=== PATIENT | male | born 1985 | race Caucasian/White ===

== ENCOUNTER 2017-11-03 18:11 | Emergency (ER) | payer BC, OTHER ==
[2017-11-03] MEDS ORDERED: NS 0.9% 1000 ML* 1,000 ML BOLUS ONE (18:55)
[2017-11-03] MEDS ORDERED: Ondansetron INJ* 2 MG/ML VIAL IV ONE (18:56)
[2017-11-03] MEDS ORDERED: Famotidine IV * 20 MG in NS 0.9% 100 ML* 100 ML IVPB ONE (18:56)
--- NOTE | 2017-11-03 19:02 | UC ---
Abdominal Pain Male HPI - HPI Summary HPI Summary: The patient is a 32-year-old male who presents here for the evaluation of dyspepsia and diarrhea. He states that for at least 2 weeks whenever he tries to swallow food of metcalf from his sternal notch down to his epigastrium. He has been experiencing some nausea. Been experiencing some epigastric discomfort. His had no vomiting. The past 3 days she has been unable to eat anything due to his symptoms. Weeks he has had diarrhea 3-5 times a day. Occasionally he sees a small amount of blood in his stool. He denies any weight loss. Today at work he felt like he was going to pass out. - History of Current Complaint Chief Complaint: UCGI Stated Complaint: UPSET STOMACH, DIZZINESS Time Seen by Provider: 11/03/17 18:29 Hx Obtained From: Patient Onset/Duration: Gradual Onset, Lasting Weeks Timing: Constant Severity Initially: Mild Severity Currently: Moderate Pain Intensity: 6 Pain Scale Used: 0-10 Numeric Location: Epigastric Radiates: No Character: Aching, Burning Aggravating Factor(s): Food Alleviating Factor(s): Nothing Associated Signs And Symptoms: Positive: Dizzy, Blood in Stool, Decreased Appetite, Nausea, Diarrhea. Negative: Vomiting, Penile Discharge - Allergies/Home Medications Allergies/Adverse Reactions: Allergies Allergy/AdvReac Type Severity Reaction Status Date / Time amphetamine [From Adderall] Allergy Rash Verified 11/03/17 18:31 dextroamphetamine Allergy Rash Verified 11/03/17 18:31 [From Adderall] chlorine Allergy Swelling Uncoded 11/03/17 18:35 Of Face,Lips,& Throat Home Medications: Home Medications Acetaminophen TAB* [Tylenol TAB*] 650 mg PO Q4H PRN 11/03/17 [History Confirmed 11/03/17] Sertraline* [Zoloft*] 25 mg PO DAILY 11/03/17 [History Confirmed 11/03/17] PMH/Surg Hx/FS Hx/Imm Hx Previously Healthy: Yes - Surgical History Surgical History: Yes Surgery Procedure, Year, and Place: SX FOR TESTICULAR TORSION - Family History Known Family History: Positive: Unknown - doesn't know the hx of his biologic parents. ?dad at young age - Social History Alcohol Use: Rare Substance Use Type: None Smoking Status (MU): Never Smoked Tobacco Review of Systems Constitutional: Fatigue Skin: Negative Eyes: Negative ENT: Negative Respiratory: Negative Cardiovascular: Negative Gastrointestinal: Abdominal Pain, Diarrhea, Nausea Genitourinary: Negative Motor: Negative Neurovascular: Negative Musculoskeletal: Negative Neurological: Negative Psychological: Negative Is Patient Immunocompromised?: No All Other Systems Reviewed And Are Negative: Yes Physical Exam Triage Information Reviewed: Yes Appearance: Ill-Appearing Vital Signs: Initial Vital Signs Temp 99.7 F 11/03/17 18:38 Pulse 107 11/03/17 18:38 Resp 16 11/03/17 18:38 BP 132/84 11/03/17 18:38 Pulse Ox 98 11/03/17 18:38 Vital Signs Reviewed: Yes Eyes: Positive: Conjunctiva Clear ENT: Positive: Hearing grossly normal. Negative: Nasal congestion, Nasal drainage, Trismus, Muffled voice, Hoarse voice, Uvula midline Neck: Positive: Supple, Nontender Respiratory: Positive: Lungs clear, Normal breath sounds, No respiratory distress, No accessory muscle use Cardiovascular: Positive: RRR, No Murmur, Tachycardia Abdomen Description: Positive: No Organomegaly, Soft, Other: - tender epigastrium and LLQ. Negative: Nontender, CVA Tenderness (R), CVA Tenderness (L ) Bowel Sounds: Positive: Present Musculoskeletal: Positive: ROM Intact, No Edema Neurological: Positive: Alert Psychological Exam: Normal Skin Exam: Normal Re-Evaluation - Re-Evaluation First Eval Re-Evaluation Time: 20:08 Change: Improved - abd pain gone Abd Pain Male Course/Dx - Course Course Of Treatment: The patient was much improved with IV hydration. He was no longer tachycardic after receiving a liter of fluids. He had no orthostatic hypotension. He was advised to follow-up with his provider first available appointment. - Differential Dx/Clinical Impression Provider Diagnoses: diarrhea. ? GERD. dehydration Discharge - Sign-Out/Discharge Documenting (check all that apply): Patient Departure - Discharge Plan Condition: Stable Disposition: HOME Patient Education Materials: Acute Diarrhea (ED), Dehydration (ED), Gastroesophageal Reflux Disease (ED) Forms: *Work Release Referrals: Yanira Bowen MD [Primary Care Provider] - As Soon As Possible Additional Instructions: blood work pending I suggest you get some mylanta and take 2 tablespoons about 1/2 hour before meals and at bedtime See your MD first available appt Bring is stool for studies TO ER FOR WORSENING SYMPTOMS - Billing Disposition and Condition Condition: STABLE Disposition: Home
[2017-11-03] MEDS ORDERED: Famotidine IV* 10 MG/ML 2 ML (20 mg) ONE (19:25)
[2017-11-03 20:20] VITALS: BP 143/89
[2017-11-04 11:02] LABS: ABS Basophils 0 10^3/ul (0-0.2); ABS Eosinophils 0.1 10^3/ul (0-0.6); ABS Lymphocytes 0.7 10^3/ul (1.0-4.8); ABS Monocytes 0.6 10^3/ul (0-0.8); ABS Neutrophils 9.1 10^3/ul (1.5-7.7); ABS Nucleated RBC 0 10^3/ul; Eosinophil % 0.8 % (0-6); Hematocrit 44 % (42-52); Lymphocyte % 6.7 % (25-47); Mean Corpuscular HGB Conc 34 g/dl (31-36); Mean Corpuscular Hemoglobin 28 pg (27-31); Mean Corpuscular Volume 83 fL (80-94); Nucleated Red Blood Cells % 0.2; Platelet Count 205 10^3/ul (150-450); Red Blood Count 5.34 10^6/ul (4.00-5.40); Red Cell Distribution Width 13 % (10.5-15); White Blood Count 10.6 10^3/ul (3.5-10.8)
[2017-11-04 11:36] LABS: EGFR Non-African American 90.9 (>60)
== END 2017-11-03 20:47 | disposition home or self-care (01) ==
LOC: UCCORT 18:11
DX: E86.0 Dehydration (principal); R19.7 Diarrhea, unspecified; R00.0 Tachycardia, unspecified; R10.13 Epigastric pain; Z88.8 Allergy status to other drugs, medicaments and biological substances
CPT/HCPCS: 36415; 80048; 81003; 85025; 96360; 96365; 96374; 99212; G0463; J2405

== ENCOUNTER 2018-10-14 04:50 | Emergency (ER) | payer BC, OTHER ==
[2018-10-14 05:32] LABS: Urine Appearance Clear; Urine Bilirubin Negative (Negative); Urine Blood Negative (Negative); Urine Color Yellow; Urine Glucose Negative (Negative); Urine Ketones Negative (Negative); Urine Nitrite Negative (Negative); Urine Protein Negative (Negative); Urine Specific Gravity 1.019 (1.010-1.030); Urine Urobilinogen Negative (Negative)
[2018-10-14] MEDS ORDERED: Lorazepam PYXIS KEY PRN (05:48)
[2018-10-14] MEDS ORDERED: LORazepam INJ* 2 MG/ML 1 ML VIAL IM ONE (05:48)
[2018-10-14] MEDS ORDERED: Lorazepam PYXIS KEY ONE (05:52)
[2018-10-14] MEDS ORDERED: LORazepam INJ* 2 MG/ML 1 ML VIAL ONE (05:52)
[2018-10-14 07:49] VITALS: BP 144/89
--- NOTE | 2018-10-14 12:41 | ED ---
Shortness of Breath - HPI Summary HPI Summary: Patient is a 33-year-old male presenting to the ED with shortness of breath, tingling in his fingertips and mid upper abdominal pain. He states he "had to take a knee" at work due to his severe anxiety symptoms and developed the following symptoms. He does have a history of anxiety, is prescribed sertraline , however has not taken this medication. Patient does state he has diffuse abdominal pain on arrival, however he endorses it as a "tensed up" feeling from him being so shaky due to his anxiety. He states he has been under a lot of stress recently. He does not have any medication for breakthrough anxiety. He did not take any medication prior to arrival. He denies any nausea or vomiting. He states this tingling in his fingertips now resolved and only endorses anxiety symptoms. He is concerned over his abdominal pain. Denies any diarrhea or constipation recently. Last bowel movement yesterday. - History of Current Complaint Chief Complaint: EDAbdPain Time Seen by Provider: 10/14/18 05:36 Hx Obtained From: Patient Onset/Duration: Sudden Onset Timing: Constant Current Severity: Moderate Associated Signs & Symptoms: Negative - Allergy/Home Medications Allergies/Adverse Reactions: Allergies Allergy/AdvReac Type Severity Reaction Status Date / Time amphetamine [From Adderall] Allergy Rash Verified 10/14/18 05:02 dextroamphetamine Allergy Rash Verified 10/14/18 05:02 [From Adderall] chlorine Allergy Swelling Uncoded 10/14/18 05:02 Of Face,Lips,& Throat PMH/Surg Hx/FS Hx/Imm Hx Previously Healthy: Yes Respiratory History: Reports: Hx Asthma - IN POOLS-BELIEVED TO BE R/T [facility]INE - Surgical History Surgery Procedure, Year, and Place: SX FOR TESTICULAR TORSION - Immunization History Hx Pertussis Vaccination: No Immunizations Up to Date: Yes Infectious Disease History: No Infectious Disease History: Denies: Traveled Outside the [place] in Last 30 Days - Family History Known Family History: Positive: Unknown - doesn't know the hx of his biologic parents. ?dad at young age - Social History Occupation: Unemployed Lives: With Family Alcohol Use: None Hx Substance Use: No Substance Use Type: Reports: None Hx Tobacco Use: No Smoking Status (MU): Never Smoked Tobacco Review of Systems Constitutional: Negative Negative: Palpitations, Chest Pain Negative: Shortness Of Breath, Cough Genitourinary: Negative Positive: no symptoms reported, see HPI Negative: Arthralgia, Myalgia Skin: Negative Positive: Anxious All Other Systems Reviewed And Are Negative: Yes Physical Exam Triage Information Reviewed: Yes Vital Signs On Initial Exam: Initial Vitals Temp Pulse Resp BP Pulse Ox 98.7 F 110 22 149/94 100 10/14/18 04:55 10/14/18 04:55 10/14/18 04:55 10/14/18 04:55 10/14/18 04:55 Vital Signs Reviewed: Yes Appearance: Positive: Well-Appearing, Well-Nourished Skin: Positive: Warm, Skin Color Reflects Adequate Perfusion Head/Face: Positive: Normal Head/Face Inspection Eyes: Positive: EOMI, Conjunctiva Clear Neck: Positive: Supple, No Lymphadenopathy Respiratory/Lung Sounds: Positive: Clear to Auscultation, Breath Sounds Present Cardiovascular: Positive: RRR, Pulses are Symmetrical in both Upper and Lower Extremities Abdomen Description: Positive: Nontender, No Organomegaly, Soft. Negative: CVA Tenderness (R), CVA Tenderness (L), Distended, Guarding Bowel Sounds: Positive: Present Musculoskeletal: Positive: Normal, Strength/ROM Intact Neurological: Positive: Sensory/Motor Intact, Alert, Oriented to Person Place, Time, Speech Normal Psychiatric: Positive: Anxious AVPU Assessment: Alert Diagnostics - Vital Signs Vital Signs Temp Pulse Resp BP Pulse Ox 10/14/18 07:48 98.9 F 105 14 144/89 98 10/14/18 07:22 96 127/80 95 10/14/18 07:07 100 134/89 96 10/14/18 07:01 89 95 10/14/18 07:00 103 145/80 97 10/14/18 06:59 89 132/86 96 10/14/18 06:52 92 135/81 96 10/14/18 06:36 93 136/85 97 10/14/18 06:22 91 132/84 95 10/14/18 06:13 89 95 10/14/18 06:12 90 143/86 94 10/14/18 06:06 86 146/87 95 10/14/18 05:55 22 10/14/18 04:55 98.7 F 110 22 149/94 100 - Laboratory Lab Results: Lab Results 07/27/19 Range/Units 05:22 Urine Color Yellow Urine Appearance Clear Urine pH 5.0 (5-9) Ur Specific [place] 1.019 (1.010-1.030) Urine Protein Negative (Negative) Urine Ketones Negative (Negative) Urine Blood Negative (Negative) Urine Nitrate Negative (Negative) Urine Bilirubin Negative (Negative) Urine Urobilinogen Negative (Negative) Ur Leukocyte Esterase Negative (Negative) Urine Glucose Negative (Negative) Lab Statement: Any lab studies that have been ordered have been reviewed, and results considered in the medical decision making process. Course/Dx - Course Course Of Treatment: Patient's evaluated for symptoms and anxiety. He is given 1 mg IM Ativan on arrival as patient is unable to swallow pills. Physical exam reveals no tenderness to the abdomen throughout. Denies pain. Symptoms resolved after Ativan given. He will be diagnosis of anxiety. Other symptoms likely related to his anxiety as they are now resolved. - Diagnoses Provider Diagnoses: Anxiety Discharge - Sign-Out/Discharge Documenting (check all that apply): Patient Departure Patient Received Moderate/Deep Sedation with Procedure: No - Discharge Plan Condition: Stable Disposition: HOME Prescriptions: LORazepam TAB(*) [Ativan 1 MG TAB (*)] 1 mg PO Q8H PRN #10 tab MDD 3 PRN Reason: Anxiety Patient Education Materials: Anxiety (ED) Forms: *Work Release Referrals: Yanira Bowen MD [Primary Care Provider] - Additional Instructions: Please follow up with your PCP as needed If you develop any worsening symptoms, return to the ED Ativan up to three times daily as needed for anxiety Continue your at home medications as prescribed - Billing Disposition and Condition Condition: STABLE Disposition: Home
== END 2018-10-14 07:48 | disposition home or self-care (01) ==
LOC: ED 04:50
DX: F41.9 Anxiety disorder, unspecified (principal); R06.02 Shortness of breath; R20.2 Paresthesia of skin; Z88.8 Allergy status to other drugs, medicaments and biological substances; Z91.048 Other nonmedicinal substance allergy status
CPT/HCPCS: 81003; 96372; 99283; J2060

== ENCOUNTER 2024-04-20 02:59 | Observation (INO) ==
[2024-04-20 03:46] LABS: ABS Basophils 0.1 10^3/uL (0.0-0.1); ABS Lymphocytes 0.5 10^3/uL (1.0-4.8); ABS Monocytes 1.2 10^3/uL (0.0-1.1); ABS Neutrophils 13.6 10^3/uL (1.5-7.6); ABS Nucleated RBC 0.01 10^3/ul; Hematocrit 48.2 % (38-53); Hemoglobin 16.9 g/dL (13.2-16.3); Lymphocyte % 3.1 %; Mean Corpuscular Hemoglobin 28.6 pg (27-33); Mean Corpuscular Hgb Conc 35.1 g/dL (31-36); Mean Corpuscular Volume 81.5 fL (80-97); Mean Platelet Volume 8.5 fL (7.5-11.2); Platelet Count 224 10^3/uL (150-450); Red Blood Count 5.92 10^6/uL (4.06-5.63); Red Cell Distribution Width 13.5 % (12-17); White Blood Count 15.4 10^3/uL (3.6-10.2)
[2024-04-20 03:55] LABS: Activated Partial Thrombo Time 32.8 seconds (26.0-38.0); INR 1.13 (0.85-1.14)
[2024-04-20] MEDS: Lactated Ringers 1000 ml BAG 1,000 ML IV SCH (03:59)
[2024-04-20 04:22] LABS: Albumin 5.1 g/dL (3.5-5.7); Albumin/Globulin Ratio 1.6 (1-3); Calcium 9.8 mg/dL (8.6-10.3); Creatinine, Serum 1.5 mg/dL (0.67-1.17); Globulin 3.2 g/dL (2-4); Total Bilirubin 0.5 mg/dL (0.2-1.0); Total Protein 8.3 g/dL (6.4-8.9); eGFR CKD-EPI 61.5 (>60)
[2024-04-20] MEDS: Lactated Ringers 1000 ml BAG 1,000 ML IV ONE ×2 (06:29→15:07)
[2024-04-20] MEDS: Ondansetron 4 mg VIAL 2 MG/ML 2 ml VIAL IV ONE (06:33)
[2024-04-20] MEDS: Cefepime 2 GM in Dextrose 2 GM/50 ML BAG IV ONE (06:48)
[2024-04-20 07:06] LABS: Urine Appearance Clear; Urine Bilirubin Negative (Negative); Urine Blood Negative (Negative); Urine Color Colorless; Urine Glucose Negative (Negative); Urine Ketones Negative (Negative); Urine Nitrite Negative (Negative); Urine Protein Negative (Negative); Urine Specific Gravity 1.009 (1.002-1.030); Urine Urobilinogen Negative (Negative)
[2024-04-20] MEDS: metroNIDAZOLE IV 500 MG/100ML 500 MG/100 ML BAG IVPB ONE (07:27)
[2024-04-20 07:51] LABS: C Reactive Protein 25.61 mg/L (<8.01)
[2024-04-20] MEDS: Vancomycin 1,000 MG in NS 0.9% 250 ml 250 ML IVPB ONE (08:44)
[2024-04-20 08:50] LABS: TSH Ultra Thyroid Stim Horm 0.47 mcIU/mL (0.34-5.60)
[2024-04-20 08:52] LABS: Free T4 0.55 ng/dL (0.61-1.12)
[2024-04-20] MEDS: Iohexol 350 (CONTRAST) 500 ML MDV IV ONE (09:23)
[2024-04-20 10:51] LABS: Rapid Strep Molecular Negative (Negative)
[2024-04-20 14:27] LABS: Magnesium 1.7 mg/dL (1.9-2.7)
[2024-04-20] MEDS: Magnesium Sulfate 2 gm BAG 2 GM/50 ML BAG IVPB ONE (16:11)
[2024-04-21 06:15] LABS: ABS Lymphocytes 0.9 10^3/uL (1.0-4.8); ABS Monocytes 0.8 10^3/uL (0.0-1.1); Eosinophil % 0.1 %; Hematocrit 39.1 % (38-53); Hemoglobin 13.8 g/dL (13.2-16.3); Lymphocyte % 11.4 %; Mean Corpuscular Hemoglobin 28.9 pg (27-33); Mean Corpuscular Hgb Conc 35.2 g/dL (31-36); Mean Platelet Volume 8.5 fL (7.5-11.2); Nucleated Red Blood Cells % 0.1 %/100WBC (0.0-0.8); Platelet Count 166 10^3/uL (150-450); Red Blood Count 4.77 10^6/uL (4.06-5.63); Red Cell Distribution Width 13.1 % (12-17); White Blood Count 7.8 10^3/uL (3.6-10.2)
[2024-04-21 06:48] LABS: Albumin 4.2 g/dL (3.5-5.7); Albumin/Globulin Ratio 1.6 (1-3); Calcium 8.5 mg/dL (8.6-10.3); Creatinine, Serum 1.13 mg/dL (0.67-1.17); Globulin 2.6 g/dL (2-4); Magnesium 2.2 mg/dL (1.9-2.7); Potassium 3.5 mmol/L (3.5-5.0); Total Bilirubin 0.6 mg/dL (0.2-1.0); Total Protein 6.8 g/dL (6.4-8.9); eGFR CKD-EPI 86.4 (>60)
[2024-04-21] MEDS ORDERED: Ondansetron 4 mg VIAL 2 MG/ML 2 ml VIAL IV PRN (08:53)
[2024-04-21] MEDS: Ondansetron ODT 4 mg TAB 4 MG TAB SL PRN ×2 (09:41→16:35)
[2024-04-21] MEDS: Acetaminophen IV 1 GM/100ML 1,000 MG/100 ML BAG IV PRN (10:28)
[2024-04-21] MEDS ORDERED: Lorazepam PYXIS KEY PRN (10:33)
[2024-04-21] MEDS: LORazepam 2 mg VIAL 1 ml IV PUSH ONE (10:56)
[2024-04-22 06:52] LABS: ABS Lymphocytes 0.7 10^3/uL (1.0-4.8); ABS Monocytes 0.6 10^3/uL (0.0-1.1); ABS Neutrophils 3.6 10^3/uL (1.5-7.6); Eosinophil % 0.2 %; Hematocrit 40.4 % (38-53); Hemoglobin 14.1 g/dL (13.2-16.3); Lymphocyte % 14.3 %; Mean Corpuscular Hemoglobin 28.6 pg (27-33); Mean Corpuscular Hgb Conc 34.9 g/dL (31-36); Mean Corpuscular Volume 81.9 fL (80-97); Mean Platelet Volume 8.8 fL (7.5-11.2); Nucleated Red Blood Cells % 0.1 %/100WBC (0.0-0.8); Platelet Count 162 10^3/uL (150-450); Red Blood Count 4.93 10^6/uL (4.06-5.63)
[2024-04-22 07:20] LABS: Creatinine, Serum 1.18 mg/dL (0.67-1.17); Potassium 3.4 mmol/L (3.5-5.0)
[2024-04-22 07:27] LABS: Magnesium 2.3 mg/dL (1.9-2.7)
[2024-04-22] MEDS: Potassium Chloride LIQUID 20 MEQ/15 ML LIQUID PO ONE (08:56)
[2024-04-22] MEDS: NS 0.9% 1000 ml BAG 1,000 ML IV SCH (08:59)
[2024-04-22 13:36] VITALS: BP 118/96
[2024-04-23 17:11] LABS: Anaplasma phagocytophilum Negative (Negative); B. miyamotoi PCR, B Negative (Negative); Babesia divergens/MO-1 Negative (Negative); Babesia ducani Negative (Negative); Ehrlichia chaffeensis Negative (Negative); Ehrlichia ewingii/canis Negative (Negative); Ehrlichia muris eauclairensis Negative (Negative)
[2024-04-24 16:28] LABS: Norovirus G1 PCR Negative (Negative); Norovirus G2 PCR Negative (Negative)
== END 2024-04-22 17:29 | disposition home or self-care (01) ==
LOC: EDHOLD 02:59 → ED 02:59 → SUATTDRO 14:01 → MED 14:55
PROVIDERS: ADMIT Hospitalist; ATTEND Student in an Organized Health Care Education/Training Program